=== PATIENT | male | born 1970 | race Caucasian/White ===

== ENCOUNTER 2016-11-09 14:33 | Emergency (ER) | payer SELFPAY ==
[~2016-11-09] VITALS: Ht 190.5 cm; Wt 102.5 kg
[2016-11-09] MEDS ORDERED: HYDROmorphone 1 MG/ML, 1ML ONE (15:12)
[2016-11-09] MEDS ORDERED: SODIUM CHLORIDE 0.9% 1,000ML IVBOLUS ONE (15:30)
[2016-11-09] MEDS ORDERED: SODIUM CHLORIDE FLUSH 10ML SYR IVF ONE (15:30)
[2016-11-09] MEDS ORDERED: ONDANSETRON 2MG/ML, 2ML IVPush ONE (15:30)
[2016-11-09] MEDS ORDERED: HYDROmorphone 1 MG/ML, 1ML IVPush PRN (15:30)
[2016-11-09 15:54] LABS: BLOOD UREA NITROGEN 17 mg/dL (7-18)
[2016-11-09] MEDS ORDERED: KETAMINE 100 MG/ML, 5ML IV ONE (16:00)
[2016-11-09 16:01] LABS: HEMATOCRIT 39.6 % (39.2-51.8); WHITE BLOOD COUNT 12.1 x10^3/uL (3.4-10)
[2016-11-09] MEDS ORDERED: ONDANSETRON 2MG/ML, 2ML ONE (16:01)
[2016-11-09] MEDS ORDERED: KETAMINE 100 MG/ML, 5ML ONE (16:01)
[2016-11-09] MEDS ORDERED: AMOXICILLIN/CLAV 875-125MG TABLET PO ONE (17:00)
[2016-11-09 19:47] VITALS: BP 124/90
== END 2016-11-09 19:50 | disposition home or self-care (01) ==
LOC: ED 19:40
DX: L02.31 Cutaneous abscess of buttock (principal)
CPT/HCPCS: 36415; 80048; 82040; 83605; 85025; 96361; 96374; 99152; 99153; 99285; J1170; J7030

== ENCOUNTER 2018-05-30 10:36 | Emergency (ER) | payer MEDICAID ==
[~2018-05-30] VITALS: Ht 190.5 cm; Wt 97.7 kg
--- NOTE | 2018-05-30 11:01 | NUR ---
PT PRESENTING TO ER FOR ATTEMPTING TO DETOX OFF HEROIN WITH THE USE OF SUBAXONE, STATES WAS SUPPOSED TO TAKE MEDICATION 24 HOURS AFTER LAST DRUG USE BUT TOOK IT TOO SOON. NOW FEELING ANXIOUS AND RESTLESS. CONNECTED TO MONITORING, VSS. CALL KEMAL PERALES. AWAITING MD ASSESSMENT AND ORDERS AT THIS TIME.
[2018-05-30 11:03] VITALS: BP 131/93
--- NOTE | 2018-05-30 11:25 | NUR ---
MD TO BEDSIDE FOR ASSESSMENT. AWAITING ORDERS AT THIS TIME
== END 2018-05-30 12:12 | disposition home or self-care (01) ==
LOC: ED 12:06
DX: F11.20 Opioid dependence, uncomplicated (principal)
CPT/HCPCS: 99281

== ENCOUNTER 2018-07-18 20:21 | Emergency (ER) | payer MEDICAID ==
[~2018-07-18] VITALS: Ht 190.5 cm; Wt 94.6 kg
[2018-07-18 20:27] VITALS: BP 128/81
--- NOTE | 2018-07-18 20:35 | NUR ---
PT HAS DRESSING IN PLACE EACH BUTTOCK. PT STATES HE HAD ABCESSES DRAINED SURGICALLY AT [facility] A DAY AND A HALF INTO HIS HOSPITALIZATION
--- NOTE | 2018-07-18 21:40 | NUR ---
PROVIDER IN TO DISCUSS POC WITH PT. REQUESTING RECORDS FROM [facility]. NO RN ORDERS AT THIS TIME.
[2018-07-18] MEDS ORDERED: LIDOCAINE-MPF 1%, 5ML ONE (22:16)
== END 2018-07-18 23:02 | disposition left against medical advice (07) ==
LOC: ED 22:56
DX: L02.31 Cutaneous abscess of buttock (principal); F11.10 Opioid abuse, uncomplicated; Z72.9 Problem related to lifestyle, unspecified; F17.210 Nicotine dependence, cigarettes, uncomplicated
CPT/HCPCS: 99283

== ENCOUNTER 2020-10-14 20:28 | Inpatient (IN) | payer MEDICAID ==
[~2020-10-14] VITALS: Ht 188 cm; Wt 105.2 kg
[2020-10-14] MEDS ORDERED: LIDOCAINE 1%-EPI 1:100K, 20ML SQ ONE (21:30)
[2020-10-14] MEDS ORDERED: SODIUM CHLORIDE 0.9% 1,000ML IVBOLUS ONE (23:30)
[2020-10-14] MEDS ORDERED: SODIUM CHLORIDE FLUSH 10ML SYR IVF ONE (23:30)
[2020-10-15 00:09] LABS: BASOPHILS % (AUTO) 1 % (0-1); EOSINOPHILS % (AUTO) 4 % (1-7); LYMPHOCYTES % (AUTO) 23 % (22-44); MEAN CORPUSCULAR HEMOGLOBIN 30.4 pg (27.5-34.5); MEAN CORPUSCULAR HGB CONC 33.7 g/dL (33.2-36.2); MEAN PLATELET VOLUME 7.2 fL (7.4-10.4); MONOCYTES % (AUTO) 8 % (2-9); NEUTROPHILS % (AUTO) 63 % (42-75); PLATELET COUNT 472 x10^3/uL (130-400); RED BLOOD COUNT 4.54 x10^6/uL (4.38-5.82)
[2020-10-15 00:14] LABS: ALBUMIN 2.9 g/dL (3.4-5.0); ANION GAP 3 mmol/L (5-15); CALCIUM 9.2 mg/dL (8.5-10.1); CHLORIDE 102 mmol/L (98-107); CREATININE 0.84 mg/dL (0.7-1.3)
--- NOTE | 2020-10-15 01:03 | NUR ---
bedside report to [place] attorney of care at this time
[2020-10-15] MEDS ORDERED: OMNIPAQUE 350 MG/ML, 150 ML BOTTLE ONE (01:37)
[2020-10-15] MEDS ORDERED: CEFTRIAXONE 2 GM in DEXTROSE 5% 50 ML IVPB ONE (02:30)
[2020-10-15] MEDS ORDERED: VANCOMYCIN PER PHARMACY MC PRN ×2 (02:30→05:30)
[2020-10-15] MEDS ORDERED: VANCOMYCIN 2,500 MG in SODIUM CHLORIDE 0.9% 500 ML IV ONE (02:30)
--- NOTE | 2020-10-15 04:47 | NUR ---
Report given to ROBERTH Horn
[2020-10-15] MEDS ORDERED: morphine SULFATE 10 MG/ML, 1ML IV PRN (05:30)
[2020-10-15] MEDS ORDERED: ONDANSETRON 2MG/ML, 2ML IVPush PRN ×2 (05:30→11:00)
[2020-10-15] MEDS ORDERED: ACETAMINOPHEN 325 MG TABLET PO PRN ×2 (05:30→11:00)
[2020-10-15 05:39] VITALS: BP 111/74
[2020-10-15 05:49] VITALS: BP 111/74
[2020-10-15] MEDS ORDERED: PHARMACOKINETIC MONITORING MC PRN (06:00)
[2020-10-15] MEDS ORDERED: PHARMACOKINETIC CONSULTATION MC ONE (06:00)
[2020-10-15] MEDS: LACTATED RINGERS 1,000 ML IV SCH ×3 (06:07→23:59)
[2020-10-15] MEDS: CEFTRIAXONE 2 GM in DEXTROSE 5% 50 ML IVPB SCH (07:17)
[2020-10-15 07:55] VITALS: BP 112/73
[2020-10-15] MEDS ORDERED: PROPOFOL 50 ML ONE (10:39)
[2020-10-15] MEDS ORDERED: CHLORHEXIDINE 15 ML UDC ONE (10:39)
[2020-10-15] MEDS ORDERED: MIDAZOLAM 1 MG/ML, 2ML ONE (10:40)
[2020-10-15] MEDS ORDERED: FENTANYL PF 250 MCG/5ML ONE ×2 (10:40→11:59)
[2020-10-15] MEDS ORDERED: LIDOCAINE-MPF 2% ,5ML ONE (10:40)
[2020-10-15] MEDS ORDERED: CHLORHEXIDINE 15 ML UDC PO ONE (11:00)
[2020-10-15] MEDS ORDERED: hydrALAzine 20 MG/ML, 1ML IV PRN (11:00)
[2020-10-15] MEDS ORDERED: OXYcodone 5 MG/5 ML ORAL.SOL UDC PO PRN (11:00)
[2020-10-15] MEDS ORDERED: FENTANYL PF 100 MCG/2ML IV PRN (11:00)
[2020-10-15] MEDS ORDERED: LABETALOL 5MG/ML, 20ML IV PRN (11:00)
[2020-10-15] MEDS ORDERED: HYDROmorphone 1 MG/ML, 1ML INJ IVPush PRN (11:00)
[2020-10-15] MEDS ORDERED: PROMETHAZINE 25 MG/ML, 1ML IVPush PRN (11:00)
[2020-10-15] MEDS ORDERED: EPHEDRINE 50 MG/ML, 1ML IVPush PRN (11:00)
[2020-10-15] MEDS ORDERED: DEXAMETHASONE 4 MG/ML, 1ML ONE (11:43)
[2020-10-15] MEDS ORDERED: PROPOFOL 10 MG/ML, 20ML ONE (11:43)
[2020-10-15] MEDS ORDERED: ONDANSETRON 2MG/ML, 2ML ONE (11:43)
[2020-10-15] MEDS ORDERED: KETOROLAC 30 MG/1 ML ONE (11:49)
[2020-10-15] MEDS ORDERED: VANCOMYCIN 1,000 MG ONE (11:57)
[2020-10-15 13:25] VITALS: BP 108/82
[2020-10-15] MEDS: VANCOMYCIN 2,000 MG in SODIUM CHLORIDE 0.9% 500 ML IV SCH (16:00)
[2020-10-15] MEDS ORDERED: OXYcodone/APAP 5/325MG TABLET PO PRN (18:00)
[2020-10-15] MEDS ORDERED: MORPHINE SULFATE 4 MG/ML, 1ML IVPush PRN (18:00)
[2020-10-15 19:15] VITALS: BP 117/72
[2020-10-15] MEDS: BUPRENORPHINE/NALOXONE 8-2MG SL SCH (21:41)
[2020-10-16 00:08] VITALS: BP 107/70
[2020-10-16] MEDS: CEFTRIAXONE 2 GM in DEXTROSE 5% 50 ML IVPB SCH (02:32)
[2020-10-16] MEDS: VANCOMYCIN 2,000 MG in SODIUM CHLORIDE 0.9% 500 ML IV SCH ×2 (03:40→16:16)
[2020-10-16 03:45] VITALS: BP 120/74
[2020-10-16 05:52] LABS: BASOPHILS % (AUTO) 1 % (0-1); EOSINOPHILS % (AUTO) 0 % (1-7); LYMPHOCYTES % (AUTO) 9 % (22-44); MEAN CORPUSCULAR HEMOGLOBIN 30.8 pg (27.5-34.5); MEAN CORPUSCULAR HGB CONC 34.2 g/dL (33.2-36.2); MEAN PLATELET VOLUME 7.6 fL (7.4-10.4); MONOCYTES % (AUTO) 5 % (2-9); NEUTROPHILS % (AUTO) 85 % (42-75); PLATELET COUNT 439 x10^3/uL (130-400); RED BLOOD COUNT 4.13 x10^6/uL (4.38-5.82); RED CELL DISTRIBUTION WIDTH 13.7 % (9.4-14.8)
[2020-10-16 06:03] LABS: ANION GAP 6 mmol/L (5-15); CALCIUM 9.2 mg/dL (8.5-10.1); CHLORIDE 104 mmol/L (98-107); CREATININE 0.88 mg/dL (0.7-1.3)
[2020-10-16 07:27] VITALS: BP 117/75
[2020-10-16] MEDS: LACTATED RINGERS 1,000 ML IV SCH ×3 (07:59→21:00)
[2020-10-16] MEDS: BUPRENORPHINE/NALOXONE 8-2MG SL SCH ×2 (08:57→21:00)
[2020-10-16 12:51] VITALS: BP 105/75
[2020-10-16 19:50] VITALS: BP 121/78
[2020-10-17 02:05] VITALS: BP 100/70
[2020-10-17] MEDS: CEFTRIAXONE 2 GM in DEXTROSE 5% 50 ML IVPB SCH (02:10)
[2020-10-17] MEDS: VANCOMYCIN 2,000 MG in SODIUM CHLORIDE 0.9% 500 ML IV SCH (02:57)
[2020-10-17 05:35] LABS: BASOPHILS % (AUTO) 1 % (0-1); EOSINOPHILS % (AUTO) 2 % (1-7); LYMPHOCYTES % (AUTO) 26 % (22-44); MEAN CORPUSCULAR HEMOGLOBIN 30.1 pg (27.5-34.5); MEAN PLATELET VOLUME 7.3 fL (7.4-10.4); MONOCYTES % (AUTO) 6 % (2-9); NEUTROPHILS % (AUTO) 64 % (42-75); PLATELET COUNT 422 x10^3/uL (130-400); RED BLOOD COUNT 4.16 x10^6/uL (4.38-5.82); RED CELL DISTRIBUTION WIDTH 13.7 % (9.4-14.8)
[2020-10-17 05:40] LABS: ANION GAP 6 mmol/L (5-15); CALCIUM 9.1 mg/dL (8.5-10.1); CHLORIDE 106 mmol/L (98-107); CREATININE 0.72 mg/dL (0.7-1.3)
[2020-10-17 07:11] VITALS: BP 101/67
[2020-10-17] MEDS: BUPRENORPHINE/NALOXONE 8-2MG SL SCH ×2 (08:30→20:42)
[2020-10-17 12:35] VITALS: BP 100/63
[2020-10-17 20:03] VITALS: BP 111/72
[2020-10-17] MEDS: LACTATED RINGERS 1,000 ML IV SCH (21:00)
[2020-10-18] MEDS: CEFTRIAXONE 2 GM in DEXTROSE 5% 50 ML IVPB SCH (01:56)
[2020-10-18 02:05] VITALS: BP 102/67
[2020-10-18 04:52] LABS: HCT (SEDRATE) 40.6 % (39.2-51.8)
[2020-10-18 04:57] LABS: BASOPHILS % (AUTO) 1 % (0-1); EOSINOPHILS % (AUTO) 3 % (1-7); LYMPHOCYTES % (AUTO) 27 % (22-44); MEAN CORPUSCULAR HEMOGLOBIN 30.5 pg (27.5-34.5); MEAN CORPUSCULAR HGB CONC 33.7 g/dL (33.2-36.2); MEAN PLATELET VOLUME 7.2 fL (7.4-10.4); MONOCYTES % (AUTO) 10 % (2-9); NEUTROPHILS % (AUTO) 59 % (42-75); PLATELET COUNT 446 x10^3/uL (130-400); RED BLOOD COUNT 4.51 x10^6/uL (4.38-5.82)
[2020-10-18 05:06] LABS: CHLORIDE 103 mmol/L (98-107)
[2020-10-18 05:10] LABS: ANION GAP 5 mmol/L (5-15); C-REACTIVE PROTEIN, QUANT 0.39 mg/dL (0.02-0.49); CALCIUM 9.1 mg/dL (8.5-10.1); CREATININE 0.79 mg/dL (0.7-1.3)
[2020-10-18 06:54] VITALS: BP 112/75
[2020-10-18] MEDS: LACTATED RINGERS 1,000 ML IV SCH ×3 (07:55→23:57)
[2020-10-18] MEDS: BUPRENORPHINE/NALOXONE 8-2MG SL SCH ×2 (09:03→20:58)
[2020-10-18 14:00] VITALS: BP 107/70
[2020-10-18 18:33] VITALS: BP 98/62
[2020-10-19] MEDS: CEFTRIAXONE 2 GM in DEXTROSE 5% 50 ML IVPB SCH (01:36)
[2020-10-19 01:41] VITALS: BP 109/71
[2020-10-19 06:27] VITALS: BP 114/74
[2020-10-19] MEDS: BUPRENORPHINE/NALOXONE 8-2MG SL SCH ×2 (09:37→19:50)
[2020-10-19] MEDS: LACTATED RINGERS 1,000 ML IV SCH ×2 (09:37→17:11)
[2020-10-19 12:07] VITALS: BP 117/68
[2020-10-19 19:27] VITALS: BP 104/65
[2020-10-20 01:52] VITALS: BP 108/67
[2020-10-20] MEDS: LACTATED RINGERS 1,000 ML IV SCH ×3 (01:52→16:28)
[2020-10-20] MEDS: CEFTRIAXONE 2 GM in DEXTROSE 5% 50 ML IVPB SCH (01:52)
[2020-10-20 05:25] LABS: BASOPHILS % (AUTO) 2 % (0-1); EOSINOPHILS % (AUTO) 5 % (1-7); LYMPHOCYTES % (AUTO) 28 % (22-44); MEAN CORPUSCULAR HGB CONC 33.2 g/dL (33.2-36.2); MEAN PLATELET VOLUME 7.2 fL (7.4-10.4); MONOCYTES % (AUTO) 10 % (2-9); NEUTROPHILS % (AUTO) 56 % (42-75); PLATELET COUNT 424 x10^3/uL (130-400); RED BLOOD COUNT 4.61 x10^6/uL (4.38-5.82); RED CELL DISTRIBUTION WIDTH 13.8 % (9.4-14.8)
[2020-10-20 05:26] LABS: HCT (SEDRATE) 41.6 % (39.2-51.8)
[2020-10-20 05:35] LABS: ALANINE AMINOTRANSFERASE 49 U/L (12-78); C-REACTIVE PROTEIN, QUANT 0.23 mg/dL (0.02-0.49); CREATININE 0.75 mg/dL (0.7-1.3)
[2020-10-20 05:38] LABS: ALKALINE PHOSPHATASE 96 U/L (45-117); BILIRUBIN,TOTAL 0.4 mg/dL (0.2-1.0); TOTAL PROTEIN 7.8 g/dL (6.4-8.2)
[2020-10-20 05:45] LABS: ANION GAP 4 mmol/L (5-15); CHLORIDE 104 mmol/L (98-107)
[2020-10-20 06:56] VITALS: BP 114/76
[2020-10-20] MEDS: BUPRENORPHINE/NALOXONE 8-2MG SL SCH ×2 (08:53→20:37)
[2020-10-20 13:53] VITALS: BP 108/59
[2020-10-20 19:13] VITALS: BP 118/79
[2020-10-21 00:08] VITALS: BP 105/62
[2020-10-21] MEDS: LACTATED RINGERS 1,000 ML IV SCH ×3 (00:17→17:12)
[2020-10-21] MEDS: CEFTRIAXONE 2 GM in DEXTROSE 5% 50 ML IVPB SCH (03:04)
[2020-10-21 07:33] VITALS: BP 114/72
[2020-10-21] MEDS: BUPRENORPHINE/NALOXONE 8-2MG SL SCH ×2 (08:47→19:23)
[2020-10-21] MEDS ORDERED: DALBAVANCIN HCL 1,500 MG in DEXTROSE 5% 500 ML IV ONE (11:30)
[2020-10-21 13:12] VITALS: BP 108/66
[2020-10-21 19:24] VITALS: BP 119/84
== END 2020-10-21 19:30 | disposition short-term general hospital (02) | DRG 580 ==
LOC: ED 10-15 01:51 → EDIP 10-15 03:54 → 4NE 10-15 04:54
PROVIDERS: ADMIT Family Medicine; ATTEND Internal Medicine
PROC: 0JDL0ZZ Extraction of Right Upper Leg Subcutaneous Tissue and Fascia, Open Approach (ICD-10-PCS; principal; 2020-10-15 11:00)
DX: L03.115 Cellulitis of right lower limb (principal); F11.20 Opioid dependence, uncomplicated; F17.210 Nicotine dependence, cigarettes, uncomplicated; L02.415 Cutaneous abscess of right lower limb; Z20.822 Contact with and (suspected) exposure to COVID-19; G89.29 Other chronic pain; Z88.0 Allergy status to penicillin; Z79.899 Other long term (current) drug therapy
CPT/HCPCS: 36415; 87806; 99285; J0574; J3490; 80048; 80053; 80074; 80202; 82040; 83605; 83735; 85025; 85651; 86140; 86592; 87040; 87070; 87075; 87205; 87521; 87635; G0378; J0696; J1100; J1885; J2250; J2405; J2704; J3010; J3370; Q9967; G0475; J0875; J7030; J7040; J7060; J7120